=== PATIENT | male | born 1965 | race Caucasian/White ===

== ENCOUNTER 2019-12-27 09:18 | Day surgery (SDC) | payer MEDICAID ==
[~2019-12-27 09:18] MED LIST: BUPIVACAINE /PF 0.25% 30 ML VIAL INJ ONE; IOPAMIDOL 50 ML VIAL IV ONE; LIDOCAINE 2%, 20 ML MDV ONE; methylPREDNISolone ACETATE 40 MG/ML ONE
[2019-12-27] MEDS ORDERED: MIDAZOLAM HCL 5 MG/5 ML VIAL ONE (10:45)
[2019-12-27] MEDS ORDERED: DIPHENHYDRAMINE INJ 50 MG/ML VIAL ONE ×2 (10:45→14:01)
[2019-12-27] MEDS: MIDAZOLAM HCL 5 MG/5 ML VIAL ONE ×2 (11:43→11:46)
[2019-12-27 13:32] VITALS: BP_SYST 153
== END 2019-12-27 13:00 | disposition home or self-care (01) ==
LOC: SDS 09:18 → SMU 09:21 → SDS 13:00
PROVIDERS: ATTEND Internal Medicine
DX: M51.16 Intervertebral disc disorders with radiculopathy, lumbar region (principal); M47.26 Other spondylosis with radiculopathy, lumbar region; G89.4 Chronic pain syndrome; Z79.899 Other long term (current) drug therapy
CPT/HCPCS: 62323; J1030; J1200; J2001; J2250; J3490; Q9967; 76000

== ENCOUNTER 2020-07-08 08:40 | Day surgery (SDC) | payer MEDICAID, SELFPAY ==
[~2020-07-08] VITALS: Ht 180.3 cm; Wt 81.6 kg
[2020-07-08] MEDS ORDERED: LIDOCAINE 1% 10 MG/ML, 20 ML MDV INJ ONE (08:41)
[2020-07-08] MEDS ORDERED: methylPREDNISolone ACETATE 40 MG/ML IM ONE (08:41)
[2020-07-08] MEDS ORDERED: IOPAMIDOL 50 ML VIAL IV ONE (08:41)
[2020-07-08] MEDS ORDERED: BUPIVACAINE /PF 0.25% 30 ML VIAL INJ ONE (08:41)
[2020-07-08] MEDS ORDERED: DIPHENHYDRAMINE INJ 50 MG/ML VIAL ONE (09:03)
[2020-07-08] MEDS: MIDAZOLAM HCL 5 MG/5 ML VIAL ONE ×2 (10:28→10:32)
[2020-07-08 14:23] VITALS: BP_SYST 130
== END 2020-07-08 11:40 | disposition home or self-care (01) ==
LOC: SDS 08:40 → SMU 08:41 → SDS 11:40
PROVIDERS: ATTEND Internal Medicine
DX: M47.26 Other spondylosis with radiculopathy, lumbar region (principal); Z20.828 Contact with and (suspected) exposure to other viral communicable diseases; G89.4 Chronic pain syndrome; M79.10 Myalgia, unspecified site
CPT/HCPCS: 62323; J1030; J1200; J2001; J2250; J3490; Q9967; U0003; 76000

== ENCOUNTER 2021-01-06 09:35 | Day surgery (SDC) | payer OTHER, SELFPAY ==
[~2021-01-06] VITALS: Ht 180.3 cm; Wt 81.6 kg
[2021-01-06] MEDS ORDERED: MORPHINE 2 MG/ML INJ. SYRINGE ONE (13:19)
[2021-01-06] MEDS ORDERED: DIPHENHYDRAMINE INJ 50 MG/ML VIAL ONE (14:34)
[2021-01-06] MEDS ORDERED: MIDAZOLAM HCL 5 MG/5 ML VIAL ONE (14:34)
[2021-01-06 14:36] VITALS: BP_SYST 152
== END 2021-01-06 14:35 | disposition home or self-care (01) ==
LOC: SDS 09:35
PROVIDERS: ATTEND Internal Medicine
DX: M51.16 Intervertebral disc disorders with radiculopathy, lumbar region (principal); M47.26 Other spondylosis with radiculopathy, lumbar region; G89.4 Chronic pain syndrome; Z79.899 Other long term (current) drug therapy; Z98.890 Other specified postprocedural states; Z20.828 Contact with and (suspected) exposure to other viral communicable diseases
CPT/HCPCS: 62323; J1200; J2250; J2270; U0003; 76000

== ENCOUNTER 2021-05-26 10:18 | Day surgery (SDC) | payer OTHER, SELFPAY ==
[~2021-05-26] VITALS: Ht 177.8 cm; Wt 81.6 kg
[2021-05-26] MEDS ORDERED: MIDAZOLAM HCL 5 MG/5 ML VIAL IVP ONE (10:19)
[2021-05-26 12:04] VITALS: BP_SYST 124
[2021-05-27] MEDS ORDERED: DIPHENHYDRAMINE INJ 50 MG/ML VIAL ONE (10:25)
== END 2021-05-26 13:10 | disposition home or self-care (01) ==
LOC: SDS 10:18 → SMU 10:22 → SDS 13:10 → SMU 13:10
PROVIDERS: ATTEND Internal Medicine
DX: M47.26 Other spondylosis with radiculopathy, lumbar region (principal); G89.4 Chronic pain syndrome; M51.9 Unspecified thoracic, thoracolumbar and lumbosacral intervertebral disc disorder; M79.10 Myalgia, unspecified site; Z20.822 Contact with and (suspected) exposure to COVID-19; Z79.899 Other long term (current) drug therapy
CPT/HCPCS: 62323; J2250; U0003; 76000; J1200

== ENCOUNTER 2021-10-15 09:06 | Day surgery (SDC) | payer OTHER, SELFPAY ==
[~2021-10-15] VITALS: Ht 180.3 cm; Wt 81.6 kg
[~2021-10-15 09:06] MED LIST changes: -BUPIVACAINE /PF 0.25% 30 ML VIAL INJ ONE; +DIPHENHYDRAMINE INJ 50 MG/ML VIAL ONE; -IOPAMIDOL 50 ML VIAL IV ONE; -LIDOCAINE 2%, 20 ML MDV ONE; +MIDAZOLAM HCL 5 MG/5 ML VIAL ONE; -methylPREDNISolone ACETATE 40 MG/ML ONE
[2021-10-15] MEDS ORDERED: NS 1000 ML IV.SOLN IV ONE (09:07)
[2021-10-15] MEDS ORDERED: methylPREDNISolone ACETATE 40 MG/ML IM ONE (09:07)
[2021-10-15] MEDS ORDERED: BUPIVACAINE /PF 0.25% 30 ML VIAL INJ ONE (09:07)
[2021-10-15] MEDS ORDERED: IOHEXOL 300 mgI/mL, 50 mL INFUS..BTL IV ONE (09:07)
[2021-10-15] MEDS ORDERED: LIDOCAINE 2%, 20 ML MDV INJ ONE (09:07)
[2021-10-15] MEDS ORDERED: MORPHINE SULFATE 10 MG/ML VIAL ONE (10:49)
[2021-10-15 12:38] VITALS: BP_SYST 121
== END 2021-10-15 12:35 | disposition home or self-care (01) ==
LOC: SDS 09:06 → SMU 09:07 → SDS 12:35
PROVIDERS: ATTEND Internal Medicine
DX: M47.26 Other spondylosis with radiculopathy, lumbar region (principal); M50.10 Cervical disc disorder with radiculopathy, unspecified cervical region; G89.4 Chronic pain syndrome; Z79.899 Other long term (current) drug therapy; Z20.822 Contact with and (suspected) exposure to COVID-19
CPT/HCPCS: 36415; 62323; 87426; J1030; J1200; J2001; J2250; J2270; J3490; J7030; Q9967; 76000

== ENCOUNTER 2022-06-29 06:54 | Day surgery (SDC) | payer OTHER ==
[~2022-06-29] VITALS: Ht 180.3 cm; Wt 79.4 kg
[2022-06-29] MEDS ORDERED: methylPREDNISolone ACETATE 40 MG/ML ONE (07:31)
[2022-06-29] MEDS ORDERED: IOHEXOL 300 mgI/mL, 50 mL INFUS..BTL IV ONE (07:31)
[2022-06-29] MEDS ORDERED: LIDOCAINE MPF 2% 5mL VIAL INJ ONE (07:31)
[2022-06-29] MEDS ORDERED: MIDAZOLAM HCL 5 MG/5 ML VIAL ONE (07:31)
[2022-06-29] MEDS ORDERED: DIPHENHYDRAMINE INJ 50 MG/ML VIAL ONE (07:31)
[2022-06-29] MEDS ORDERED: BUPIVACAINE /PF 0.25% 10 ML VIAL INJ ONE (07:31)
[2022-06-29] MEDS ORDERED: MIDAZOLAM HCL 5 MG/5 ML VIAL IVP ONE ×4 (09:30→09:52)
[2022-06-29] MEDS ORDERED: DIPHENHYDRAMINE INJ 50 MG/ML VIAL IVP ONE ×2 (09:30→09:52)
[2022-06-29] MEDS ORDERED: fentaNYL CITRATE/PF 100 MCG/2 ML AMP IVP ONE (09:52)
[2022-06-29 13:05] VITALS: BP_SYST 133
== END 2022-06-29 11:05 | disposition home or self-care (01) ==
LOC: SDS 06:54 → SMU 06:57 → SDS 11:05
PROVIDERS: ATTEND Internal Medicine
DX: M51.16 Intervertebral disc disorders with radiculopathy, lumbar region (principal); M47.26 Other spondylosis with radiculopathy, lumbar region; M50.13 Cervical disc disorder with radiculopathy, cervicothoracic region; G89.4 Chronic pain syndrome; Z79.899 Other long term (current) drug therapy; Z20.822 Contact with and (suspected) exposure to COVID-19
CPT/HCPCS: 36415; 62323; U0003; J2001; J3490; J1200; J1030; J2250; Q9967; 76000; J3010

== ENCOUNTER 2024-02-21 09:04 | Day surgery (SDC) | payer MEDICAID, OTHER ==
[~2024-02-21] VITALS: Ht 180.3 cm; Wt 80.7 kg
[2024-02-21] MEDS ORDERED: NORMAL SALINE 10 ML VIAL ONE (10:00)
[2024-02-21] MEDS ORDERED: methylPREDNISolone ACETATE 40 MG/ML ONE (10:00)
[2024-02-21] MEDS ORDERED: LIDOCAINE MPF 2% 20 MG/1 ML, 5 ML VIAL INH ONE (10:00)
[2024-02-21] MEDS ORDERED: BUPIVACAINE /PF 0.25% 30 ML VIAL INJ ONE (10:00)
[2024-02-21] MEDS ORDERED: IOHEXOL 300 mgI/mL, 50 mL INFUS..BTL IV ONE (10:00)
[2024-02-21] MEDS ORDERED: ONDANSETRON HCL 4 MG/2 ML VIAL ONE (12:05)
[2024-02-21] MEDS ORDERED: DIPHENHYDRAMINE INJ 50 MG/ML VIAL ONE (12:05)
[2024-02-21] MEDS: fentaNYL CITRATE/PF 100 MCG/2 ML AMP ONE (12:55)
[2024-02-21] MEDS: MIDAZOLAM HCL 5 MG/5 ML VIAL ONE (12:56)
[2024-02-21 13:12] VITALS: O2SAT 98
[2024-02-21 16:17] VITALS: BP_SYST 123; PULSE 75; RESP 20
== END 2024-02-21 13:36 | disposition home or self-care (01) ==
LOC: SDS 09:04 → SMU 09:06 → SDS 13:36
PROVIDERS: ATTEND Internal Medicine
DX: M47.26 Other spondylosis with radiculopathy, lumbar region (principal); M54.41 Lumbago with sciatica, right side; M51.9 Unspecified thoracic, thoracolumbar and lumbosacral intervertebral disc disorder; M50.90 Cervical disc disorder, unspecified, unspecified cervical region; G89.4 Chronic pain syndrome; M79.10 Myalgia, unspecified site; Z79.899 Other long term (current) drug therapy
CPT/HCPCS: 62323; J3490; J1030; J2250; J3010; Q9967; 76000; J1200; J2405

== ENCOUNTER 2024-04-24 09:24 | Day surgery (SDC) | payer MEDICAID ==
[~2024-04-24] VITALS: Ht 180.3 cm; Wt 80.7 kg
[2024-04-24] MEDS ORDERED: fentaNYL CITRATE/PF 100 MCG/2 ML AMP ONE (09:32)
[2024-04-24] MEDS ORDERED: MIDAZOLAM HCL 5 MG/5 ML VIAL ONE (09:33)
[2024-04-24] MEDS ORDERED: LIDOCAINE 2%, 20 ML MDV ONE (10:00)
[2024-04-24] MEDS: fentaNYL CITRATE/PF 100 MCG/2 ML AMP IVP ONE (10:46)
[2024-04-24 13:30] VITALS: O2SAT 98
[2024-04-24 17:01] VITALS: BP_SYST 155; PULSE 80; RESP 18
== END 2024-04-24 11:48 | disposition home or self-care (01) ==
LOC: SDS 09:24 → SMU 09:27 → SDS 11:48
PROVIDERS: ATTEND Internal Medicine
DX: M51.16 Intervertebral disc disorders with radiculopathy, lumbar region (principal); M51.9 Unspecified thoracic, thoracolumbar and lumbosacral intervertebral disc disorder; G89.4 Chronic pain syndrome; E78.5 Hyperlipidemia, unspecified; M79.10 Myalgia, unspecified site; M19.90 Unspecified osteoarthritis, unspecified site; Z98.890 Other specified postprocedural states
CPT/HCPCS: 62323; J2250; J3010; Q9967; J1010; 76000; J1030; J2001

== ENCOUNTER 2024-06-26 07:53 | Day surgery (SDC) | payer MEDICAID ==
[~2024-06-26] VITALS: Ht 180.3 cm; Wt 81.6 kg
[2024-06-26] MEDS ORDERED: MIDAZOLAM HCL 5 MG/5 ML VIAL ONE (08:22)
[2024-06-26] MEDS ORDERED: fentaNYL CITRATE/PF 100 MCG/2 ML AMP ONE (08:22)
[2024-06-26] MEDS: MIDAZOLAM HCL 5 MG/5 ML VIAL IVP ONE ×3 (10:04→10:10)
[2024-06-26] MEDS: fentaNYL CITRATE/PF 100 MCG/2 ML AMP IVP ONE (10:06)
[2024-06-26 13:11] VITALS: BP_SYST 143; PULSE 63; RESP 18; TEMP 98.6; O2SAT 100
== END 2024-06-26 11:00 | disposition home or self-care (01) ==
LOC: SDS 07:53 → SMU 07:53 → SDS 11:00
PROVIDERS: ATTEND Internal Medicine
DX: M51.16 Intervertebral disc disorders with radiculopathy, lumbar region (principal); E78.5 Hyperlipidemia, unspecified; G89.4 Chronic pain syndrome; M79.10 Myalgia, unspecified site; Z98.890 Other specified postprocedural states; Z79.899 Other long term (current) drug therapy
CPT/HCPCS: 62323; 82948; J2250; J3010; 76000